=== PATIENT | female | born 1970 | race Caucasian/White ===

== ENCOUNTER 2020-02-02 09:38 | Inpatient (IN) | payer BC ==
[2020-02-02] MEDS ORDERED: ACETAMINOPHEN 1000 MG/100 ML VIAL (NON FORMULARY) IVPB ONE (10:32)
[2020-02-02] MEDS ORDERED: SODIUM CHLORIDE 1,000 ML IV STA (10:32)
[2020-02-02] MEDS ORDERED: ONDANSETRON 4 MG/2 ML VIAL IVPUSH ONE (10:33)
--- NOTE | 2020-02-02 10:35 | PDOC ---
History of Present Illness - General Chief Complaint: Pain Stated Complaint: ABD PAIN Time Seen by Provider: 02/02/20 10:30 History Source: Patient Exam Limitations: No Limitations - History of Present Illness Initial Comments: Pt is a 49 yo F, with PMH of pre-DM and HLD, who is presenting with complaints of RUQ pain x6 days. Pt states the pain is sharp, intermittent, and "feels the same as when I had my gallbladder out". Pt had cholecystectomy 10/2019 (Dr. Mas, [facility]). Pt states the pain is associated with nausea, but without vomiting, and pain is exacerbated by fatty foods. Pt denies any fevers/chills, headache, vision changes, syncope, chest pain, cough, palpitations, SOB, urinary symptoms, diarrhea/constipation, or leg swelling. Pt states she had urinary symptoms (dysuria, frequency) x4 days ago, and was treated with Bactrim DS by [facility] (day 3/7). Pt states these symptoms have improved. Allergies: NKDA PCP: None Surgeon: Dr. Mas ([facility]) Social: Pt denies any cigarette, alcohol, or drug use. Pt denies any recent travel or sick contacts. Surgical: cholecystectomy Family: Father with cholecystectomy 02/02/20 10:35 02/02/20 12:37 Past History - Travel Traveled outside of the country in the last 30 days: No Close contact w/someone who was outside of country & ill: No - Past Medical History Allergies/Adverse Reactions: Allergies Allergy/AdvReac Type Severity Reaction Status Date / Time No Known Allergies Allergy Verified 02/02/20 09:51 Home Medications: Ambulatory Orders Sertraline HCl [Zoloft] 100 mg PO DAILY 02/02/20 Sulfamethoxazole/Trimethoprim [Bactrim Ds Tablet] 1 each PO DAILY 02/02/20 COPD: No Psychiatric Problems: Yes (ANXIETY) - Surgical History Cholecystectomy: Yes - Psycho Social/Smoking Cessation Hx Smoking History: Never smoked Information on smoking cessation initiated: No Hx Alcohol Use: No Drug/Substance Use Hx: No Abd/GI Specific PMHX - Complaint Specific PMHX Colitis: No Diverticulitis: No Gall Bladder Disease: Yes GERD: No Hepatitis: No Irritable Bowel Synd (IBS): No Pancreatitis: No GI Ulcer Disease: No Review of Systems - Review of Systems Able to Perform ROS?: Yes Is the patient limited Latvian proficient: No Constitutional: Yes: Weight Stable. No: Chills, Diaphoresis, Fever, Loss of Appetite, Malaise, Weakness HEENTM: No: Recent change in vision, Nose Congestion, Throat Pain, Throat Swelling, Difficulty Swallowing Respiratory: No: Cough, Orthopnea, Shortness of Breath Cardiac (ROS): No: Chest Pain, Edema, Irregular Heart Rate, Lightheadedness, Palpitations, Syncope, Chest Tightness ABD/GI: Yes: Nausea, Abdominal cramping. No: Abdominal Distended, Constipated, Diarrhea, Poor Appetite, Poor Fluid Intake, Vomiting : No: Burning, Dysuria, Frequency, Flank Pain, Hematuria, Pain, Urgency Musculoskeletal: No: Back Pain, Muscle Pain, Muscle Weakness Integumentary: No: Rash Neurological: No: Headache, Numbness, Weakness, Unsteady Gait, Dizziness Psychiatric: No: Sleep Pattern Change, Change in Appetite Endocrine: No: Increased Urine, Change in Weight Hematologic/Lymphatic: No: Anemia, Blood Clots, Easy Bleeding, Easy Bruising All Other Systems: Reviewed and Negative *Physical Exam - Vital Signs Last Vital Signs Temp Pulse Resp BP Pulse Ox 97.9 F 87 17 120/66 100 02/02/20 09:51 02/02/20 09:51 02/02/20 09:51 02/02/20 09:51 02/02/20 09:51 - Physical Exam Vitals stable, pt afebrile. Pt appears uncomfortable, but in NAD. Obese body habitus. Pt alert and oriented x3. 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 No midline spinal tenderness, step-offs, or crepitus. Head normocephalic, atraumatic. Eyes PERRLA, EOMI. Oropharynx without erythema or exudates, no LAD b/l. No nasal congestion. Hearing intact. Clear heart sounds, S1/S2, no JVD, b/l pedal edema, or heart murmur. Clear lung sounds, no respiratory distress, wheezes, crackles, or accessory muscle use. +diffuse upper abdominal TTP, worst in epigastric area, with no rebound, no guarding. Abdomen soft, non-distended, and with normoactive bowel sounds. Well healed small surgical scars in RUQ. Skin without jaundice or rash. 02/02/20 12:52 ED Treatment Course - LABORATORY CBC & Chemistry Diagram: 02/02/20 10:40 02/02/20 12:28 Medical Decision Making - Medical Decision Making Pt was seen at bedside, also will be seen by attending Dr. Conte. Pt presenting with complaints of RUQ pain, pt had GB removed 10/2019. Will evaluate for chol edocholithiasis vs gastritis vs pancreatitis. Pt tolerating PO intake, less likely obstructed. Provided IV tylenol, zofran, NS for improvement of pain and nausea. Will continue to reassess pt and monitor for symptomatic improvement. 02/02/20 12:54 US abdomen: Fatty infiltration of the liver. Status post cholecystectomy with a 2.8 x 1.5 cm fluid collection in the gallbladder fossa which could represent a seroma or biloma. Correlate clinically. If indicated further evaluation with cross-sectional imaging and/or HIDA scan may be obtained. Shadowing echogenic foci in the gallbladder fossa could represent air within collapsed small bowel loops, calcifications or dense sutures. 02/02/20 14:04 Provided 4 mg IV morphine for pain. UA without infection CBC: WBC 10.9 CMP: elevated Tbili, AST, ALT Will obtain CT abd/pelvis with IV contrast to evaluate for abscess 02/02/20 14:05 CT scan with no distinct seroma or abscess noted. Diffuse fatty liver. No other acute pathology. Providing additional 4 mg IV morphine for pain Paged GI and hospitalist team for admission, likely obstructing stone (possible need for ERCP vs MRCP). 02/02/20 15:08 Pt admitted to hospitalist team. Pt stable and comfortable. 02/02/20 15:28 Discharge - Discharge Information Problems reviewed: Yes Clinical Impression/Diagnosis: RUQ abdominal pain Condition: Stable - Admission Yes - Follow up/Referral - Patient Discharge Instructions - Post Discharge Activity
--- NOTE | 2020-02-02 10:49 | PDOC ---
Attending Attestation - Resident Resident Name: Haritha [place] - ED Attending Attestation I have performed the following: I have examined & evaluated the patient, The case was reviewed & discussed with the resident, I agree w/resident's findings & plan, Exceptions are as noted - HPI HPI: 02/02/20 12:02 49y F PMHx predm, HL, sp cholecystecotmy in oct presents with RUQ pain x 6 days. The patient states that the pain was gradual onset, And intermittent originally.. Since last night the pain was much more persistent and significant. Patient states she had a meal of corn beef lastnight. The patient endorses some nonbilious nonbloody vomiting associated with the pain, the pain has been constant since yesterday and is located primarily in epigastrium and right upper quadrant. Patient states the pain feels familiar when she had her gallbladder taken out last October, But she has otherwise felt fine until the past week. Patient went to urgent care thursday And was diagnosed UTI and she has been compliant with her medications however states that her right upper quadrant pain is not improving.The patient denies any other symptoms including chest pain, shortness of breath, palpitations, lightheadedness, fevers, diarrhea, dysuria, Back pain, hematuria Social history: The patient denies any smoking, recreational drug use or alcohol abuse ddx - choledocholithiasis Exam: GENERAL: The patient is awake, alert, and fully oriented, Nontoxic - in no acute distress. HEAD: Normocephalic, atraumatic. EYES: extraocular movements intact, sclera anicteric, conjunctiva clear. ENT: Normal voice, Moist mucous membranes. NECK: Normal range of motion, supple LUNGS: Breath sounds equal, clear to auscultation bilaterally. No wheezes, no rhonchi, no rales. HEART: Regular rate and rhythm, normal S1 and S2 without murmur, rub or gallop. ABDOMEN: Soft, mild RUQ/epigastric tendeness, No guarding, no rebound. No CVA tenderness EXTREMITIES: Normal range of motion, no edema. NEUROLOGICAL: No facial assymetry, Normal speech, PSYCH: Normal mood, normal affect. SKIN: Warm, Dry, normal turgor, Differential for the patient's symptoms includes possible gastritis, pancreatitis, choledocho lithiasis. Will obtain blood work, right upper quadrant ultrasound, will reassess - Physicial Exam PE: 02/07/20 10:04 see above - Medical Decision Making 02/02/20 13:15 The patient's ultrasound was noted for a seroma/collection. The patient's chemistry hemolyzed and we are awaiting redraw. Consider a CT of the abdomen to further evaluate her seroma/collection. Heart Score/ECG Review - ECG Impressions Comment:: 02/02/20 13:30 Twelve-lead EKG was performed and reviewed by me. There is normal sinus rhythm with a normal rate. Rate of 85 Short TX interval Normal axis No ST wave changes suggestive of acute ischemia Discharge - Discharge Information Problems reviewed: Yes Clinical Impression/Diagnosis: RUQ abdominal pain Condition: Improved Disposition: HOME - Follow up/Referral - Patient Discharge Instructions - Post Discharge Activity
[2020-02-02] MEDS ORDERED: ACETAMINOPHEN INJECTION 100 ML IVPB ONE (10:51)
[2020-02-02] MEDS ORDERED: ONDANSETRON 4 MG/2 ML VIAL ONE (10:51)
[2020-02-02 11:12] LABS: URINE APPEARANCE CLEAR; URINE BILIRUBIN NEGATIVE (NEGATIVE); URINE COLOR YELLOW; URINE GLUCOSE (UA) NEGATIVE (NEGATIVE); URINE KETONE NEGATIVE (NEGATIVE); URINE LEUK ESTERASE NEGATIVE (NEGATIVE); URINE NITRITE NEGATIVE (NEGATIVE); URINE PROTEIN NEGATIVE (NEGATIVE)
[2020-02-02 11:14] LABS: BASO % 0.3 % (0-2.0); HEMATOCRIT 37.5 % (32.4-45.2); HEMOGLOBIN 12.8 GM/dL (10.7-15.3); LYMPH % 10.3 % (8-40); MCH 29.2 pg (25.7-33.7); MCHC 34.1 g/dl (32.0-36.0); MEAN CELL VOLUME 85.7 fl (80-96); MEAN PLT VOLUME 9.8 fl (7.5-11.1); MONO % 6.3 % (3.8-10.2); NEUT % 80.1 % (42.8-82.8); PLATELET COUNT 335 K/MM3 (134-434); RBC 4.37 M/mm3 (3.60-5.2); RDW 15.3 % (11.6-15.6); WHITE BLOOD COUNT 10.9 K/mm3 (4.0-10.0)
[2020-02-02 11:23] LABS: PROTHROMBIN TIME (PATIENT) 11.8 SEC (9.7-13.0)
[2020-02-02] MEDS ORDERED: morphine CARPU-JECT 4 MG/1 ML DISP.SYRIN IVPUSH ONE ×2 (12:21→15:05)
[2020-02-02] MEDS ORDERED: morphine SULFATE 4 MG/ML VIAL ONE ×2 (12:32→15:09)
--- NOTE | 2020-02-02 13:21 | EKG ---
Test Reason : Blood Pressure : / mmHG Vent. Rate : 085 BPM Atrial Rate : 085 BPM P-R Int : 104 ms QRS Dur : 082 ms QT Int : 378 ms P-R-T Axes : 000 040 021 degrees QTc Int : 449 ms SINUS RHYTHM WITH SHORT UT OTHERWISE NORMAL ECG NO PREVIOUS ECGS AVAILABLE Confirmed by DELMAR GÓMEZ MD ([id number]) on 02/02/2020 1:21:09 PM Referred By: Confirmed By:DELMAR GÓMEZ MD
[2020-02-02 13:25] LABS: ALBUMIN 3.4 g/dl (3.4-5.0); ALK PHOS 153 U/L (45-117); ANION GAP 7 MMOL/L (8-16); BILIRUBIN,TOTAL 1.1 mg/dL (0.2-1); BLOOD UREA NITROGEN 8.7 mg/dL (7-18); CALCIUM 9.1 mg/dL (8.5-10.1); CHLORIDE 105 mmol/L (98-107); CO2 25 mmol/L (21-32); CREATININE 0.6 mg/dL (0.55-1.3); GLUCOSE,RANDOM 92 mg/dL (74-106); LIPASE 62 U/L (73-393); POTASSIUM 4.3 mmol/L (3.5-5.1); SGOT/AST 160 U/L (15-37); SGPT/ALT 113 U/L (13-61); SODIUM 137 mmol/L (136-145); TOT PROT 6.8 g/dl (6.4-8.2)
[2020-02-02 17:00] VITALS: BMI 34.5
[2020-02-02] MEDS ORDERED: ONDANSETRON 4 MG/2 ML VIAL IVPUSH PRN (17:07)
--- NOTE | 2020-02-02 17:09 | HP ---
CHIEF COMPLAINT:abdominal pain PCP: HISTORY OF PRESENT ILLNESS: 49 yo F PMHof PreDM, HLD, s/p cholecystectomy ( 10/2019 at [facility], Dr. Mas) BIBEMS to ED for RUQ pain. pt states that for 6 days she has been having worsening RUQ/ epigastric pain. pt states that the pain is 8/10 at its worst, is crampy and sharp at times. she states the pain is worse on inspiration. she denies any alleviating factors. she endorses nausea, with one episode of vomiting today. she states that she went to an urgent care on Thursday, was told she had a UTI and was started on Bactrim. she states that this pain is similar in nature to how she felt in Dec prior to cholecystectomy. she states she last tolerated a meal last night ( corn beef and potatoes, chicken fingers) . she states her diet isnt healthy. she denies fevers or chills. she states that when the pain was at its worst this morning she also felt dizzy. ER course was notable for: (1)U/S see below, CT see below (2)1 L IVF, 4 mg x2 morphine, zofran (3) Recent Travel: PAST MEDICAL HISTORY:see above PAST SURGICAL HISTORY:cholecystectomy, C section LMP: last week of december Social History: Smoking:denies Alcohol:denies Drugs: denies Allergies No Known Allergies Allergy (Verified 02/02/20 09:51) HOME MEDICATIONS: Home Medications Medication Instructions Recorded Sertraline HCl [Zoloft] 100 mg PO DAILY 02/02/20 Sulfamethoxazole/Trimethoprim 1 each PO DAILY 02/02/20 [Bactrim Ds Tablet] REVIEW OF SYSTEMS CONSTITUTIONAL: Absent: fever, chills, diaphoresis, generalized weakness, malaise, loss of appetite, weight change HEENT: Absent: rhinorrhea, nasal congestion, throat pain, throat swelling, difficulty swallowing, mouth swelling, ear pain, eye pain, visual changes CARDIOVASCULAR: Absent: chest pain, syncope, palpitations, irregular heart rate, lightheadedness, peripheral edema RESPIRATORY: Absent: cough, shortness of breath, dyspnea with exertion, orthopnea, wheezing, stridor, hemoptysis GASTROINTESTINAL: Present: abdominal pain, nausea, vomiting Absent: abdominal distension, diarrhea, constipation, melena, hematochezia GENITOURINARY: Absent: dysuria, frequency, urgency, hesitancy, hematuria, flank pain, genital pain MUSCULOSKELETAL: Absent: myalgia, arthralgia, joint swelling, back pain, neck pain SKIN: Absent: rash, itching, pallor HEMATOLOGIC/IMMUNOLOGIC: Absent: easy bleeding, easy bruising, lymphadenopathy, frequent infections ENDOCRINE: Absent: unexplained weight gain, unexplained weight loss, heat intolerance, cold intolerance NEUROLOGIC: Present: dizziness Absent: headache, focal weakness or paresthesias, unsteady gait, seizure, mental status changes, bladder or bowel incontinence PHYSICAL EXAMINATION Vital Signs - 24 hr 02/02/20 02/02/20 02/02/20 09:51 14:54 17:00 Temperature 97.9 F 98.4 F 98.7 F Pulse Rate 87 75 Pulse Rate [ 78 Radial] Respiratory 17 20 20 Rate Blood Pressure 120/66 111/64 Blood Pressure 101/57 L [Right Arm] O2 Sat by Pulse 100 98 Oximetry (%) GENERAL: Awake, alert, and fully oriented, in no acute distress. HEAD: Normal with no signs of trauma. EYES: Pupils equal, round and reactive to light, extraocular movements intact, sclera anicteric EARS, NOSE, THROAT: oropharynx clear without exudates. Moist mucous membranes. NECK: Normal range of motion, supple without lymphadenopathy, JVD, or masses. LUNGS: Breath sounds equal, clear to auscultation bilaterally. No wheezes, and no crackles. No accessory muscle use. HEART: Regular rate and rhythm, normal S1 and S2 without murmur, rub or gallop. ABDOMEN: Soft, mildly ttp at epigastric and suprapubic region, not distended, normoactive bowel sounds, no guarding, no rebound, no masses. + hepatomegaly MUSCULOSKELETAL: Normal range of motion at all joints. No bony deformities or tenderness. No CVA tenderness. UPPER EXTREMITIES: 2+ pulses, warm, well-perfused. No cyanosis. No clubbing. No peripheral edema. LOWER EXTREMITIES: 2+ pulses, warm, well-perfused. No calf tenderness. No peripheral edema. NEUROLOGICAL: Cranial nerves II-XII intact. Normal speech. SKIN: Warm, dry, normal turgor, no rashes or lesions noted, normal capillary refill. Laboratory Last Values WBC 10.9 K/mm3 (4.0-10.0) H 02/02/20 10:40 RBC 4.37 M/mm3 (3.60-5.2) 02/02/20 10:40 Hgb 12.8 GM/dL (10.7-15.3) 02/02/20 10:40 Hct 37.5 % (32.4-45.2) 02/02/20 10:40 MCV 85.7 fl (80-96) 02/02/20 10:40 MCH 29.2 pg (25.7-33.7) 02/02/20 10:40 MCHC 34.1 g/dl (32.0-36.0) 02/02/20 10:40 RDW 15.3 % (11.6-15.6) 02/02/20 10:40 Plt Count 335 K/MM3 (134-434) 02/02/20 10:40 MPV 9.8 fl (7.5-11.1) 02/02/20 10:40 Absolute Neuts (auto) 8.7 K/mm3 (1.5-8.0) H 02/02/20 10:40 Neutrophils % 80.1 % (42.8-82.8) 02/02/20 10:40 Lymphocytes % 10.3 % (8-40) 02/02/20 10:40 Monocytes % 6.3 % (3.8-10.2) 02/02/20 10:40 Eosinophils % 3.0 % (0-4.5) 02/02/20 10:40 Basophils % 0.3 % (0-2.0) 02/02/20 10:40 Nucleated RBC % 0 % (0-0) 02/02/20 10:40 PT with INR 11.80 SEC (9.7-13.0) 02/02/20 10:40 INR 1.00 (0.83-1.09) 02/02/20 10:40 Sodium 137 mmol/L (136-145) 02/02/20 12:28 Potassium 4.3 mmol/L (3.5-5.1) 02/02/20 12:28 Chloride 105 mmol/L (98-107) 02/02/20 12:28 Carbon Dioxide 25 mmol/L (21-32) 02/02/20 12:28 Anion Gap 7 MMOL/L (8-16) L 02/02/20 12:28 BUN 8.7 mg/dL (7-18) 02/02/20 12:28 Creatinine 0.6 mg/dL (0.55-1.3) 02/02/20 12:28 Est GFR (CKD-EPI)AfAm 124.05 02/02/20 12:28 Est GFR (CKD-EPI)NonAf 107.03 02/02/20 12:28 Random Glucose 92 mg/dL (74-106) 02/02/20 12:28 Calcium 9.1 mg/dL (8.5-10.1) 02/02/20 12:28 Total Bilirubin 1.1 mg/dL (0.2-1) H 02/02/20 12:28 AST 160 U/L (15-37) H 02/02/20 12:28 ALT 113 U/L (13-61) H 02/02/20 12:28 Alkaline Phosphatase 153 U/L (45-117) H 02/02/20 12:28 Creatine Kinase 49 U/L (26-192) 02/02/20 12:28 Troponin I < 0.02 ng/ml (0.00-0.05) 02/02/20 12:28 Total Protein 6.8 g/dl (6.4-8.2) 02/02/20 12:28 Albumin 3.4 g/dl (3.4-5.0) 02/02/20 12:28 Lipase 62 U/L (73-393) L 02/02/20 12:28 Serum , Qual Negative 02/02/20 10:40 Urine Color Yellow 02/02/20 10:40 Urine Appearance Clear 02/02/20 10:40 Urine pH 5.0 (5.0-8.0) 02/02/20 10:40 Ur Specific [place] 1.016 (1.010-1.035) 02/02/20 10:40 Urine Protein Negative (NEGATIVE) 02/02/20 10:40 Urine Glucose (UA) Negative (NEGATIVE) 02/02/20 10:40 Urine Ketones Negative (NEGATIVE) 02/02/20 10:40 Urine Blood Negative (NEGATIVE) 02/02/20 10:40 Urine Nitrite Negative (NEGATIVE) 02/02/20 10:40 Urine Bilirubin Negative (NEGATIVE) 02/02/20 10:40 Urine Urobilinogen 1.0 mg/dL (0.2-1.0) 02/02/20 10:40 Ur Leukocyte Esterase Negative (NEGATIVE) 02/02/20 10:40 Blood Type O NEGATIVE 02/02/20 10:40 Antibody Screen Negative 02/02/20 10:40 Abdomen U/S: IMPRESSION: Fatty infiltration of the liver. Status post cholecyst ectomy with a 2.8 x 1.5 cm fluid collection in the gallbladder fossa which c ould represent a seroma or biloma. Correlate clinically. If indicated further evaluation with cross- sectional imaging and/or HIDA scan may be obtained. Shadowing echogenic foci in the gallbladder fossa could represent air within collapsed small bowel loops, calcifications or dense sutures. Abdomen Pelvis CT: IMPRESSION: 1. Diffuse fatty infiltration of the liver. 2. S/P cholecystectomy. There may be a trace amount of fluid or postoperative scarring within the gallbladder fossa. There is no evidence of a discrete se bud, abscess or biloma. 3. No evidence of acute pathology within the abdomen or pelvis. ASSESSMENT/PLAN: 49 yo F PMHof PreDM, HLD, s/p cholecystectomy ( 10/2019 at [facility], Dr. Mas) BIBEMS to ED for RUQ pain. RUQ pain, transaminitis - possibly 2/2 biliary colic, post cholecystectomy syndrome ? - T bili: 1.1, AST 160, ALT 113, AP 153. continue to trend . lipase neg - U/S and CT findings above - GI consult - will start rocephin, flagyl - IVF - may consider MRCP vs ERCP Pre-DM - will get A1C - monitor sugars, if elevated will start ISS , BGM HLD - will get lipid panel F/E/N - IV D5LR -monitor lytes - NPO for possible intervention DVT ppx: Hep SQ Dispo: admit to Med/Surg Visit type - Emergency Visit Emergency Visit: No - New Patient This patient is new to me today: Yes Date on this admission: 02/03/20 - Critical Care Critical Care patient: No ATTENDING PHYSICIAN STATEMENT I saw and evaluated the patient. I reviewed the resident's note and discussed the case with the resident. I agree with the resident's findings and plan as documented. SUBJECTIVE: OBJECTIVE: ASSESSMENT AND PLAN:
[2020-02-02] MEDS ORDERED: DEXTROSE 5%-NORMAL SALINE 1,000 ML IV SCH ×2 (17:30→18:49)
[2020-02-02] MEDS ORDERED: DEXTROSE 5%-WATER - 50 ML IVPB ONE (17:53)
[2020-02-02] MEDS ORDERED: cefTRIAXone SODIUM 1 GM VIAL ONE (17:53)
[2020-02-02 17:55] LABS: BILIRUBIN,DIRECT 0.7 mg/dL (0.0-0.2)
[2020-02-02] MEDS: CEFTRIAXONE 1 GM in DEXTROSE 5%-WATER - 50 ML IVPB SCH (17:56)
--- NOTE | 2020-02-02 18:32 | CON.GI ---
Consult Consult Specialty:: GI Referred by:: Hospitalist Service Reason for Consultation:: Abdominal pain - History of Present Illness Chief Complaint: Abdominal pain History of Present Illness: 49F admitted for evaluation of abdominal pain. States that pain started 6 days ago, was intermittent, located in upper abdomen and RUQ, worse after meals, fatty meals in particular. She went to urgent care Thursday, was diagnosed with UTI and sent home on bactrim. She states that aide from the , labs were "OK". She states that the pain intensified last night prompting her evaluation today. No fevers, chills, cough. + Nausea with retching this morning. States that pain was similar to when she emergently had a cholecystectomy at [facility] 11/03. Abdominal US raised question of small fluid collection in the GB fossa. Follow-up CT scan failed to reveal a fluid collection. Labs revealed elevated bili / ALP and transaminases. US revealed normal caliber bili CBD at 4mm. - History Source History Provided By: Patient Limitations to Obtaining History: No Limitations - Past Medical History Cardio/Vascular: Yes: Hyperlipdemia ...: No - Past Surgical History Past Surgical History: Yes: Cholecystectomy (Laparoscopic 11/03) - Alcohol/Substance Use Hx Alcohol Use: No History of Substance Use: reports: None - Smoking History Smoking history: Never smoked Have you smoked in the past 12 months: No - Social History Usual Living Arrangement: With Spouse ADL: Independent Occupation: Works for [employer] of : [employer] History of Recent Travel: No Home Medications - Allergies Allergies/Adverse Reactions: Allergies Allergy/AdvReac Type Severity Reaction Status Date / Time No Known Allergies Allergy Verified 02/02/20 09:51 - Home Medications Home Medications: Ambulatory Orders Sertraline HCl [Zoloft] 100 mg PO DAILY 02/02/20 Sulfamethoxazole/Trimethoprim [Bactrim Ds Tablet] 1 each PO DAILY 02/02/20 Family Medical History Other Family History: Mother: Alive, healthy. Father: Alive: healthy. 1 brother: healthy 1 sister: helathy. No fam h/o colon cancer or other GI malignancy. Review of Systems - Review of Systems Constitutional: denies: Chills, Unintentional Wgt. Loss Cardiovascular: denies: Chest Pain, Shortness of Breath Respiratory: denies: SOB Gastrointestinal: reports: Abdominal Pain, Nausea Physical Exam-GI Vital Signs: Vital Signs Temperature 98.7 F 02/02/20 17:00 Pulse Rate 75 02/02/20 17:00 Respiratory Rate 20 02/02/20 17:00 Blood Pressure 111/64 02/02/20 17:00 O2 Sat by Pulse Oximetry (%) 98 02/02/20 17:08 Constitutional: Yes: Calm Eyes: No: Sclera Icterus Cardiovascular: Yes: Regular Rate and Rhythm Respiratory: Yes: CTA Bilaterally Gastrointestinal Inspection: Yes: Scars (Healed trochar scars). No: Distention ...Auscultate: Yes: Normoactive Bowel Sounds ...Palpate: Yes: Soft, Tenderness (Mild epigastric and RUQ TTP). No: Guarding, Hepatomegaly, Splenomegaly, Tenderness, Rebound Edema: No (No LE edemqa) Neurological: Yes: Alert Labs: CBC, BMP 02/02/20 10:40 02/02/20 12:28 INR, PTT INR 1.00 (0.83-1.09) 02/02/20 10:40 Hepatic Panel Total Bilirubin 1.1 mg/dL (0.2-1) H 02/02/20 12:28 Direct Bilirubin 0.7 mg/dL (0.0-0.2) H 02/02/20 12:28 AST 160 U/L (15-37) H 02/02/20 12:28 ALT 113 U/L (13-61) H 02/02/20 12:28 Alkaline Phosphatase 153 U/L (45-117) H 02/02/20 12:28 Albumin 3.4 g/dl (3.4-5.0) 02/02/20 12:28 Problem List - Problems (1) RUQ abdominal pain Assessment/Plan: Given post prandial nature of pain, leukocytosis, liver chemistry abnormality, concern would be for retained / passed CBD stone or sludge. Improved tenderness elicited on exam, however Ms. Guzman had received morphine prior to my evaluation. Plan: Ordered MRCP to evaluate biliary tract. As of this morning, the MRCP machine was not functioningm so will see if this is rectified NPO IV hydration per primary team AM labs including CBC/CMP and type and cross IV Abx: Currently of ceftriaxone and flagyl Discussed the possibility of ERCP with Ms. Guzman. Discussed potential risks of the procedure like but not limited to bleeding, perforation requiring surgery to repair, infection, sedation medication effects, pancreatitis all of which could be potentially life threatening. She has agreed to the procedure if it was felt to be medically necessary. Will follow. Code(s): R10.11 - RIGHT UPPER QUADRANT PAIN
--- NOTE | 2020-02-02 19:47 | PN ---
Teaching Attending Note Name of Resident: Alba Bose ATTENDING PHYSICIAN STATEMENT I saw and evaluated the patient. I reviewed the resident's note and discussed the case with the resident. I agree with the resident's findings and plan as documented. SUBJECTIVE: Patient seen and examined at bedside, endorses RUQ pain, she's 2-3 months post-lap cholecystectomy, VSS, denies URI symptoms. Awaiting MRCP. OBJECTIVE: GENERAL: Awake, alert, and fully oriented, in no acute distress. HEAD: Normal with no signs of trauma. EYES: Pupils equal, round and reactive to light, extraocular movements intact, sclera anicteric EARS, NOSE, THROAT: oropharynx clear without exudates. Moist mucous membranes. NECK: Normal range of motion, supple without lymphadenopathy, JVD, or masses. LUNGS: Breath sounds equal, clear to auscultation bilaterally. No wheezes, and no crackles. No accessory muscle use. HEART: Regular rate and rhythm, normal S1 and S2 without murmur, rub or gallop. ABDOMEN: Soft, mild tenderness RUQ no guarding no echevarria sign, not distended, normoactive bowel sounds, no guarding, no rebound, no masses. MUSCULOSKELETAL: Normal range of motion at all joints. No bony deformities or tenderness. No CVA tenderness. UPPER EXTREMITIES: 2+ pulses, warm, well-perfused. No cyanosis. No clubbing. No peripheral edema. LOWER EXTREMITIES: 2+ pulses, warm, well-perfused. No calf tenderness. No peripheral edema. NEUROLOGICAL: Cranial nerves II-XII intact. Normal speech. SKIN: Warm, dry, normal turgor, no rashes or lesions noted, normal capillary refill. Vital Signs - 24 hr 02/02/20 02/02/20 02/02/20 09:51 14:54 17:00 Temperature 97.9 F 98.4 F 98.7 F Pulse Rate 87 75 Pulse Rate [ 78 Radial] Respiratory 17 20 20 Rate Blood Pressure 120/66 111/64 Blood Pressure 101/57 L [Right Arm] O2 Sat by Pulse 100 98 Oximetry (%) 02/02/20 17:08 Temperature Pulse Rate Pulse Rate [ Radial] Respiratory Rate Blood Pressure Blood Pressure [Right Arm] O2 Sat by Pulse 98 Oximetry (%) Laboratory Results - last 24 hr 03/19/20 03/19/20 03/19/20 10:40 10:40 10:40 WBC 10.9 H RBC 4.37 Hgb 12.8 Hct 37.5 MCV 85.7 MCH 29.2 MCHC 34.1 RDW 15.3 Plt Count 335 MPV 9.8 Absolute Neuts (auto) 8.7 H Neutrophils % 80.1 Lymphocytes % 10.3 Monocytes % 6.3 Eosinophils % 3.0 Basophils % 0.3 Nucleated RBC % 0 PT with INR INR Sodium Potassium Chloride Carbon Dioxide Anion Gap BUN Creatinine Est GFR (CKD-EPI)AfAm Est GFR (CKD-EPI)NonAf Random Glucose Calcium Total Bilirubin Direct Bilirubin AST ALT Alkaline Phosphatase Creatine Kinase Troponin I Total Protein Albumin Lipase Serum , Qual Negative Urine Color Yellow Urine Appearance Clear Urine pH 5.0 Ur Specific [place] 1.016 Urine Protein Negative Urine Glucose (UA) Negative Urine Ketones Negative Urine Blood Negative Urine Nitrite Negative Urine Bilirubin Negative Urine Urobilinogen 1.0 Ur Leukocyte Esterase Negative Blood Type Antibody Screen 02/02/20 02/02/20 02/02/20 10:40 10:40 10:40 WBC RBC Hgb Hct MCV MCH MCHC RDW Plt Count MPV Absolute Neuts (auto) Neutrophils % Lymphocytes % Monocytes % Eosinophils % Basophils % Nucleated RBC % PT with INR 11.80 INR 1.00 Sodium Cancelled Potassium Cancelled Chloride Cancelled Carbon Dioxide Cancelled Anion Gap Cancelled BUN Cancelled Creatinine Cancelled Est GFR (CKD-EPI)AfAm Cancelled Est GFR (CKD-EPI)NonAf Cancelled Random Glucose Cancelled Calcium Cancelled Total Bilirubin Cancelled Direct Bilirubin AST Cancelled ALT Cancelled Alkaline Phosphatase Cancelled Creatine Kinase Cancelled Troponin I Cancelled Total Protein Cancelled Albumin Cancelled Lipase Cancelled Serum , Qual Urine Color Urine Appearance Urine pH Ur Specific [place] Urine Protein Urine Glucose (UA) Urine Ketones Urine Blood Urine Nitrite Urine Bilirubin Urine Urobilinogen Ur Leukocyte Esterase Blood Type O NEGATIVE Antibody Screen Negative 02/02/20 12:28 WBC RBC Hgb Hct MCV MCH MCHC RDW Plt Count MPV Absolute Neuts (auto) Neutrophils % Lymphocytes % Monocytes % Eosinophils % Basophils % Nucleated RBC % PT with INR INR Sodium 137 Potassium 4.3 Chloride 105 Carbon Dioxide 25 Anion Gap 7 L BUN 8.7 Creatinine 0.6 Est GFR (CKD-EPI)AfAm 124.05 Est GFR (CKD-EPI)NonAf 107.03 Random Glucose 92 Calcium 9.1 Total Bilirubin 1.1 H Direct Bilirubin 0.7 H AST 160 H ALT 113 H Alkaline Phosphatase 153 H Creatine Kinase 49 Troponin I < 0.02 Total Protein 6.8 Albumin 3.4 Lipase 62 L Serum , Qual Urine Color Urine Appearance Urine pH Ur Specific [place] Urine Protein Urine Glucose (UA) Urine Ketones Urine Blood Urine Nitrite Urine Bilirubin Urine Urobilinogen Ur Leukocyte Esterase Blood Type Antibody Screen Home Medications Medication Instructions Recorded Sertraline HCl [Zoloft] 100 mg PO DAILY 02/02/20 Sulfamethoxazole/Trimethoprim 1 each PO DAILY 02/02/20 [Bactrim Ds Tablet] Current Medications Generic Name Dose Route Start Last Admin Trade Name Freq PRN Reason Stop Dose Admin Docusate Sodium 100 mg 02/02/20 19:15 Colace - PO DAILY PORTIA Heparin Sodium (Porcine) 5,000 unit 02/02/20 22:00 Heparin - SQ TID PORTIA Ceftriaxone Sodium 1 gm/ 50 mls @ 100 mls/hr 02/02/20 17:30 02/02/20 17:56 Dextrose IVPB 100 mls/hr DAILY PORTIA Administration Metronidazole 500 mg in 100 mls @ 100 mls/hr 02/02/20 17:30 02/02/20 18:55 Flagyl 500mg Premixed Ivpb - IVPB 100 mls/hr Q6H-IV PORTIA Administration Dextrose/Sodium Chloride 1,000 mls @ 100 mls/hr 02/02/20 18:49 02/02/20 19:00 D5-Ns - IV 100 mls/hr ASDIR PORTIA Administration Indomethacin 50 mg 02/02/20 18:51 Indocin Suppository - ME 02/02/20 18:52 ONCE ONE Morphine Sulfate 2 mg 02/02/20 19:11 Morphine Sulfate IVPUSH Q6H PRN PAIN LEVEL 7 - 10 Ondansetron HCl 4 mg 02/02/20 17:07 Zofran Injection IVPUSH Q6H PRN NAUSEA Polyethylene Glycol 17 gm 02/03/20 10:00 Miralax (For Daily Use) - PO DAILY PORTIA ASSESSMENT AND PLAN: 49 F h/o obesity, Pre-DM, HLD, s/p cholecystectomy ( 10/2019 at [facility], Dr. Mas) admitted for RUQ pain suspicious for passed CBD stone v.s. biliary sludge. RUQ pain w/ transaminitis Suspicious for possible passed CBD stone, v.s. residual biliary sludge awaiting MRCP, IVF for now, NPO, pain control with Morphine Send hepatitis panel GI consult Pre-DM send A1c, lipids, TSH advise DM diet, and exercise w/ weight loss Depression restart Zoloft Denies current SI/HI DVT ppx: Heparin SC Med Surg
[2020-02-02] MEDS ORDERED: HEPARIN NA (PORCINE) 5,000 UNITS/ML 1ML VIAL SQ SCH (22:00)
[2020-02-02] MEDS: MORPHINE SULFATE 2 MG/ML VIAL IVPUSH PRN (22:10)
[2020-02-02] MEDS: DOCUSATE SODIUM 100 MG CAPSULE (FP) PO SCH (23:03)
[2020-02-03 06:46] LABS: HEMATOCRIT 36.8 % (32.4-45.2); HEMOGLOBIN 12.4 GM/dL (10.7-15.3); MCHC 33.8 g/dl (32.0-36.0); MEAN CELL VOLUME 85.8 fl (80-96); MEAN PLT VOLUME 9.6 fl (7.5-11.1); PLATELET COUNT 291 K/MM3 (134-434); RBC 4.28 M/mm3 (3.60-5.2); RDW 15.5 % (11.6-15.6); WHITE BLOOD COUNT 4.8 K/mm3 (4.0-10.0)
[2020-02-03 06:52] LABS: INR 1.06 (0.83-1.09); PROTHROMBIN TIME (PATIENT) 12.5 SEC (9.7-13.0)
[2020-02-03 06:55] LABS: ACTIVATED PTT 31.8 SECONDS (25.2-36.5)
[2020-02-03 07:30] LABS: ALBUMIN 3.2 g/dl (3.4-5.0); BILIRUBIN,TOTAL 1.3 mg/dL (0.2-1); BLOOD UREA NITROGEN 7.8 mg/dL (7-18); CALCIUM 8.5 mg/dL (8.5-10.1); CREATININE 0.6 mg/dL (0.55-1.3); MAGNESIUM 2.1 mg/dL (1.8-2.4); PHOSPHOROUS 4.1 mg/dL (2.5-4.9); POTASSIUM 4.1 mmol/L (3.5-5.1); TOT PROT 6.4 g/dl (6.4-8.2)
[2020-02-03] MEDS ORDERED: fentaNYL CITRATE 250 MCG/5 ML VIAL ONE (09:02)
[2020-02-03] MEDS ORDERED: MIDAZOLAM HCL 2 MG/2 ML SINGLE DOSE VIAL ONE (09:28)
--- NOTE | 2020-02-03 09:40 | PN ---
Progress Note (short form) - Note Progress Note: GI Note: Case was presented to me by Dr Ly yesterday. MRCP reveals a distal CBD stone. I discussed ERCP with it's potential for such complication as perforation, hemorrhage and multiorgan failure that can be associated with ERCP induced pancreatitis. Porsha has signed an informed consent. Indocin will be given. Will proceed with ERCP HA.
[2020-02-03 09:52] LABS: BILIRUBIN,DIRECT 0.6 mg/dL (0.0-0.2)
[2020-02-03] MEDS ORDERED: INDOMETHACIN 50 MG RECTAL SUPPOSITORY PR ONE ×2 (09:55→10:00)
[2020-02-03] MEDS: DOCUSATE SODIUM 100 MG CAPSULE (FP) PO SCH (10:17)
[2020-02-03] MEDS ORDERED: IOHEXOL 300 MG/ML INFUS..BTL IV ONE (10:25)
--- NOTE | 2020-02-03 11:01 | PN ---
Progress Note (short form) - Note Progress Note: GI NOte: Please see ERCP report. A single stone was found. Despite making the largest size sphincterotomy that her anatomy permitted the stone could not be extracted so a 7Fr x 4cm length double pigtail stent was placed to protect against cholangitis and pancreatitis. I explained to her and her by phone that she will need a repeat ERCP to remove the stent and stone within 6 months or sooner if the COVID situation permits. If she does not develop pancreatitis, fever or other complications she could be discharged tomorrow with an antibiotic for 7 days and Actigal 300mg BID. She has my business card to arrange followup.
[2020-02-03] MEDS ORDERED: LACTATED RINGERS SOLUTION 1,000 ML/1,000 ML INFUS.BAG IV SCH ×2 (11:15→18:00)
[2020-02-03] MEDS: MORPHINE SULFATE 2 MG/ML VIAL IVPUSH PRN ×2 (12:17→19:34)
[2020-02-03] MEDS: SERTRALINE HCL 50 MG TABLET (FP) PO SCH (13:58)
--- NOTE | 2020-02-03 14:08 | PN ---
Physical Exam: SUBJECTIVE: Patient seen and examined at bedside. before ERCP pt states that pain was well controlled, denied n/v. after ERCP pt states that she was having significant RUQ , epigastric pain. she still has an appetite. she denies nausea. ERCP and findings were discussed with patient OBJECTIVE: Vital Signs Period Temp Pulse Resp BP Sys/Faye Pulse Ox Last 24 Hr 97.7 F-99.1 F 62-80 14-20 101-138/56-77 96-100 GENERAL: The patient is awake, alert, and fully oriented, in no acute distress. HEAD: Normal with no signs of trauma.. LUNGS: Breath sounds equal, clear to auscultation bilaterally, no wheezes, no crackles, no accessory muscle use. HEART: Regular rate and rhythm, S1, S2 without murmur, rub or gallop. ABDOMEN: Soft, RUQ and epigastric TTP , nondistended, normoactive bowel sounds, no guarding EXTREMITIES: 2+ pulses, warm, well-perfused, no edema. SKIN: Warm, dry, normal turgor, no rashes or lesions noted Laboratory Last Values WBC 4.8 K/mm3 (4.0-10.0) 02/03/20 06:15 RBC 4.28 M/mm3 (3.60-5.2) 02/03/20 06:15 Hgb 12.4 GM/dL (10.7-15.3) 02/03/20 06:15 Hct 36.8 % (32.4-45.2) 02/03/20 06:15 MCV 85.8 fl (80-96) 02/03/20 06:15 MCH 29.0 pg (25.7-33.7) 02/03/20 06:15 MCHC 33.8 g/dl (32.0-36.0) 02/03/20 06:15 RDW 15.5 % (11.6-15.6) 02/03/20 06:15 Plt Count 291 K/MM3 (134-434) 02/03/20 06:15 MPV 9.6 fl (7.5-11.1) 02/03/20 06:15 Absolute Neuts (auto) 8.7 K/mm3 (1.5-8.0) H 02/02/20 10:40 Neutrophils % 80.1 % (42.8-82.8) 02/02/20 10:40 Lymphocytes % 10.3 % (8-40) 02/02/20 10:40 Monocytes % 6.3 % (3.8-10.2) 02/02/20 10:40 Eosinophils % 3.0 % (0-4.5) 02/02/20 10:40 Basophils % 0.3 % (0-2.0) 02/02/20 10:40 Nucleated RBC % 0 % (0-0) 02/02/20 10:40 PT with INR 12.50 SEC (9.7-13.0) 02/03/20 06:15 INR 1.06 (0.83-1.09) 02/03/20 06:15 PTT (Actin FS) 31.8 SECONDS (25.2-36.5) 02/03/20 06:15 Sodium 139 mmol/L (136-145) 02/03/20 06:15 Potassium 4.1 mmol/L (3.5-5.1) 02/03/20 06:15 Chloride 107 mmol/L (98-107) 02/03/20 06:15 Carbon Dioxide 24 mmol/L (21-32) 02/03/20 06:15 Anion Gap 8 MMOL/L (8-16) 02/03/20 06:15 BUN 7.8 mg/dL (7-18) 02/03/20 06:15 Creatinine 0.6 mg/dL (0.55-1.3) 02/03/20 06:15 Est GFR (CKD-EPI)AfAm 124.05 02/03/20 06:15 Est GFR (CKD-EPI)NonAf 107.03 02/03/20 06:15 POC Glucometer 95 UNITS (80-120) 02/03/20 06:13 Random Glucose 98 mg/dL (74-106) 02/03/20 06:15 Hemoglobin A1c % 5.4 % (4.2-6.3) 02/03/20 06:15 Calcium 8.5 mg/dL (8.5-10.1) 02/03/20 06:15 Phosphorus 4.1 mg/dL (2.5-4.9) 02/03/20 06:15 Magnesium 2.1 mg/dL (1.8-2.4) 02/03/20 06:15 Total Bilirubin 1.3 mg/dL (0.2-1) H 02/03/20 06:15 Direct Bilirubin 0.6 mg/dL (0.0-0.2) H 02/03/20 06:15 AST 300 U/L (15-37) H 02/03/20 06:15 ALT 357 U/L (13-61) H 02/03/20 06:15 Alkaline Phosphatase 220 U/L (45-117) H 02/03/20 06:15 Creatine Kinase 49 U/L (26-192) 02/02/20 12:28 Troponin I < 0.02 ng/ml (0.00-0.05) 02/02/20 12:28 Total Protein 6.4 g/dl (6.4-8.2) 02/03/20 06:15 Albumin 3.2 g/dl (3.4-5.0) L 02/03/20 06:15 Triglycerides 169 mg/dL (0-150) H 02/03/20 06:15 Cholesterol 206 mg/dL (50-200) H 02/03/20 06:15 Total LDL Cholesterol 139 mg/dL (5-100) H 02/03/20 06:15 HDL Cholesterol 37 mg/dL (40-60) L 02/03/20 06:15 Lipase 62 U/L (73-393) L 02/02/20 12:28 TSH 2.48 uIU/ml (0.358-3.74) 02/03/20 06:15 Serum , Qual Negative 02/02/20 10:40 Urine Color Yellow 02/02/20 10:40 Urine Appearance Clear 02/02/20 10:40 Urine pH 5.0 (5.0-8.0) 02/02/20 10:40 Ur Specific [place] 1.016 (1.010-1.035) 02/02/20 10:40 Urine Protein Negative (NEGATIVE) 02/02/20 10:40 Urine Glucose (UA) Negative (NEGATIVE) 02/02/20 10:40 Urine Ketones Negative (NEGATIVE) 02/02/20 10:40 Urine Blood Negative (NEGATIVE) 02/02/20 10:40 Urine Nitrite Negative (NEGATIVE) 02/02/20 10:40 Urine Bilirubin Negative (NEGATIVE) 02/02/20 10:40 Urine Urobilinogen 1.0 mg/dL (0.2-1.0) 02/02/20 10:40 Ur Leukocyte Esterase Negative (NEGATIVE) 02/02/20 10:40 Acetaminophen 14.4 02/02/20 20:00 Blood Type O NEGATIVE 02/02/20 10:40 Antibody Screen Negative 02/02/20 10:40 Current Medications Docusate Sodium (Colace -) 200 mg PO DAILY PORTIA Metronidazole (Flagyl 500mg Premixed Ivpb -) 500 mg in 100 mls @ 100 mls/hr IVPB Q6H-IV PORTIA Last Admin: 02/03/20 15:51 Dose: 100 mls/hr Documented by: Cefazolin Sodium 1 gm/ (Dextrose) 50 mls @ 100 mls/hr IVPB Q8H-IV PORTIA Stop: 02/06/20 17:59 Lactated Ringer's (Lactated Ringers Solution) 1,000 ml in 1,000 mls @ 250 mls/hr IV ASDIR PORTIA Stop: 02/03/20 18:00 Last Admin: 02/03/20 13:58 Dose: Not Given Documented by: Lactated Ringer's (Lactated Ringers Solution) 1,000 ml in 1,000 mls @ 200 mls/hr IV ASDIR PORTIA Stop: 02/04/20 02:00 Lactated Ringer's (Lactated Ringers Solution) 1,000 ml in 1,000 mls @ 175 mls/hr IV ASDIR PORTIA Stop: 02/04/20 10:00 Lactated Ringer's (Lactated Ringers Solution) 1,000 ml in 1,000 mls @ 150 mls/hr IV ASDIR [facility] Lorazepam (Ativan) 2 mg PO BID PRN PRN Reason: PAIN LEVEL 4 - 6 Morphine Sulfate (Morphine Sulfate) 2 mg IVPUSH Q6H PRN PRN Reason: PAIN LEVEL 1 - 3 Ondansetron HCl (Zofran Injection) 4 mg IVPUSH Q6H PRN PRN Reason: NAUSEA Last Admin: 02/03/20 12:17 Dose: 4 mg Documented by: Oxycodone HCl (Roxicodone -) 5 mg PO Q4H PRN PRN Reason: PAIN LEVEL 4 - 6 Last Admin: 02/03/20 16:41 Dose: 5 mg Documented by: Oxycodone HCl (Roxicodone -) 10 mg PO Q6H PRN PRN Reason: PAIN LEVEL 7 - 10 Polyethylene Glycol (Miralax (For Daily Use) -) 17 gm PO DAILY [facility] Last Admin: 02/03/20 14:09 Dose: Not Given Documented by: Sertraline HCl (Zoloft -) 100 mg PO DAILY [facility] Last Admin: 02/03/20 13:58 Dose: Not Given Documented by: Ursodiol (Actigal -) 300 mg PO BID [facility] ASSESSMENT/PLAN: 49 yo F PMHof PreDM, HLD, s/p cholecystectomy ( 10/2019 at [facility], Dr. Mas) BIBEMS to ED for RUQ pain. pt is admitted for choledocolithiasis RUQ pain, transaminitis 2/2 lithiasis - s/p ERCP 02/02 , stone visualized but unable to be removed but stent placed. pt will need to f/u outpt within 6 months. - continue cefazolyn and flagyl . will need abx for 7 days, will convert to PO on dc.started on Actigal 300mg BID. - continue to trend LFTs - will get lipase , amylase in am - GI consult appreciated - IVF HLD, Hx of pre- dm - LDL 139, TG 169, chol 206, HDL 37 -ASCVD 1.8%, no need for statin. recommended lifestyle modifications -A1c 5.4% F/E/N - IV D5LR -monitor lytes - clear liquid diet DVT ppx: SCDs, avoid chemical ppx Visit type - Emergency Visit Emergency Visit: No - New Patient This patient is new to me today: No - Critical Care Critical Care patient: No - Discharge Referral Referred to [facility] Med [facility].C[facility] No ATTENDING PHYSICIAN STATEMENT I saw and evaluated the patient. I reviewed the resident's note and discussed the case with the resident. I agree with the resident's findings and plan as documented. SUBJECTIVE: OBJECTIVE: ASSESSMENT AND PLAN:
[2020-02-03] MEDS: POLYETHYLENE GLYCOL 3350 119 GM BTL PO SCH (14:09)
[2020-02-03] MEDS: CEFTRIAXONE 1 GM in DEXTROSE 5%-WATER - 50 ML IVPB SCH (15:06)
--- NOTE | 2020-02-03 15:37 | PN ---
Teaching Attending Note Name of Resident: Alba Bose ATTENDING PHYSICIAN STATEMENT I saw and evaluated the patient. I reviewed the resident's note and discussed the case with the resident. I agree with the resident's findings and plan as documented. SUBJECTIVE: just came back from ERCP no fever or chills. No N/V . has abd pain in epigastric area. OBJECTIVE: NAD,awake, alert, oriented MMM CV: RRR, no MRG Lungs: CTAB ABd:sfot, ND, TTP in epigastric area. no rebound tenderness, no guarding . nl BS. well healed laparoscopic wounds Ext : No edema or erythema on upper or lower extremities ASSESSMENT AND PLAN: 49 y/o lady with h/o HLP, and recent [id number], w previous h/o prediabetes, who presented with abd pain and was found to have LFTS abnormalities due to CBD stone 1- Impacted CBD stone 2- Transaminitis 3- LDL of 131 4- H/o Pre-diabetes. Now A1c 5.4 Plan : s/p ERCP with stent placement. stone was not removed - cont IVf - case d/w Dr. Escamilla, can't use CTX with LR. So Abx were changed to Cefazolin + metronidazole . - cont po abx after dc - clears fro dinner today - monitor fro signs of pancreatitis - add oxy for pain control - LDL 131, 10 year risk for CAD is 1%. No need for statins - follow LFTs in am - Lipase in am DBVT X: SCds . No chemicals in 72 hours
[2020-02-03] MEDS ORDERED: LORazepam 2 MG TABLET PO PRN (16:26)
[2020-02-03] MEDS ORDERED: oxyCODONE HCL 5 MG TABLET PO PRN ×4 (16:35→17:31)
[2020-02-03] MEDS ORDERED: MORPHINE SULFATE 2 MG/ML VIAL IVPUSH PRN ×2 (16:38→16:51)
[2020-02-03] MEDS ORDERED: ceFAZolin SODIUM 1 GM VIAL ONE (18:35)
[2020-02-03] MEDS ORDERED: DEXTROSE 5%-WATER - 50 ML IVPB ONE (18:35)
[2020-02-03] MEDS: CEFAZOLIN 1 GM in DEXTROSE 5%-WATER - 50 ML IVPB SCH (18:50)
[2020-02-03] MEDS ORDERED: LORazepam 1 MG TABLET PO PRN (20:42)
[2020-02-03] MEDS ORDERED: PT OWN MED DRAWER 7, Y5N ONE (21:44)
[2020-02-03] MEDS: URSODIOL 300 MG CAPSULE PO SCH (21:47)
[2020-02-04] MEDS ORDERED: ceFAZolin SODIUM 1 GM VIAL ONE ×3 (00:56→17:52)
[2020-02-04] MEDS ORDERED: DEXTROSE 5%-WATER - 50 ML IVPB ONE ×3 (00:57→17:53)
[2020-02-04] MEDS: CEFAZOLIN 1 GM in DEXTROSE 5%-WATER - 50 ML IVPB SCH ×3 (01:04→18:15)
[2020-02-04] MEDS ORDERED: LACTATED RINGERS SOLUTION 1,000 ML/1,000 ML INFUS.BAG IV SCH ×2 (02:00→10:00)
[2020-02-04 06:53] LABS: BASO % 0.4 % (0-2.0); EOS % 1.8 % (0-4.5); HEMATOCRIT 35.4 % (32.4-45.2); HEMOGLOBIN 11.8 GM/dL (10.7-15.3); LYMPH % 20.8 % (8-40); MCH 28.7 pg (25.7-33.7); MCHC 33.5 g/dl (32.0-36.0); MEAN CELL VOLUME 85.6 fl (80-96); MEAN PLT VOLUME 9.5 fl (7.5-11.1); MONO % 6.7 % (3.8-10.2); NEUT % 70.3 % (42.8-82.8); PLATELET COUNT 302 K/MM3 (134-434); RBC 4.13 M/mm3 (3.60-5.2); RDW 14.9 % (11.6-15.6); WHITE BLOOD COUNT 7.9 K/mm3 (4.0-10.0)
[2020-02-04 07:18] LABS: BILIRUBIN,DIRECT 0.2 mg/dL (0.0-0.2); BILIRUBIN,TOTAL 0.7 mg/dL (0.2-1); BLOOD UREA NITROGEN 4.8 mg/dL (7-18); CALCIUM 8.5 mg/dL (8.5-10.1); CREATININE 0.5 mg/dL (0.55-1.3); MAGNESIUM 1.9 mg/dL (1.8-2.4); PHOSPHOROUS 3.4 mg/dL (2.5-4.9); POTASSIUM 4.1 mmol/L (3.5-5.1); TOT PROT 6.1 g/dl (6.4-8.2)
[2020-02-04] MEDS: MORPHINE SULFATE 2 MG/ML VIAL IVPUSH PRN (09:48)
[2020-02-04] MEDS: POLYETHYLENE GLYCOL 3350 119 GM BTL PO SCH (10:10)
[2020-02-04] MEDS: URSODIOL 300 MG CAPSULE PO SCH ×2 (10:10→21:15)
[2020-02-04] MEDS: DOCUSATE SODIUM 100 MG CAPSULE (FP) PO SCH (10:10)
[2020-02-04] MEDS: SERTRALINE HCL 50 MG TABLET (FP) PO SCH (10:10)
--- NOTE | 2020-02-04 13:12 | PN.GI ---
GI Progress Note Subjective: PATIENT DOING OKAY TODAY - LESS ABDOMINAL PAIN ; TOLERATED DIET - Objective Vital Signs: Vital Signs Temperature 98.1 F 02/04/20 06:00 Pulse Rate 86 02/04/20 06:00 Respiratory Rate 20 02/04/20 06:00 Blood Pressure 145/85 02/04/20 06:00 O2 Sat by Pulse Oximetry (%) 97 02/03/20 21:00 Constitutional: Well Nourished, No Distress Eyes: Yes: WNL HENT: Yes: WNL Neck: Yes: WNL Cardiovascular: Yes: WNL, Regular Rate and Rhythm Respiratory: Yes: WNL, Regular, CTA Bilaterally Gastrointestinal Inspection: Yes: WNL ...Auscultate: Yes: Normoactive Bowel Sounds Extremities: Yes: WNL Edema: No Labs: CBC, BMP 02/04/20 06:20 02/04/20 06:20 INR, PTT INR 1.06 (0.83-1.09) 02/03/20 06:15 Problem List - Problems (1) Choledocholithiasis with obstruction Assessment/Plan: LOW FAT DIET COMPLETE 7 DAY COURSE OF ABX ACTIGAL IF CONSTINUES TO IMPROVE NO OBJECTION TO DC HOME FROM A GI PERSPECTIVE WITH OUTPT GI F/U (DR. SYED) REGARDING PLAN FOR STENT REMOVAL . Code(s): K80.51 - CALCULUS OF BILE DUCT W/O CHOLANGITIS OR CHOLECYST W OBST (2) RUQ abdominal pain Code(s): R10.11 - RIGHT UPPER QUADRANT PAIN (3) Transaminitis Code(s): R74.0 - NONSPEC ELEV OF LEVELS OF TRANSAMNS & LACTIC ACID DEHYDRGNSE
--- NOTE | 2020-02-04 15:56 | PN ---
Teaching Attending Note Name of Resident: Arnol Acuña ATTENDING PHYSICIAN STATEMENT I saw and evaluated the patient. I reviewed the resident's note and discussed the case with the resident. I agree with the resident's findings and plan as documented. SUBJECTIVE: seen at 10 am No fever or chills. ate breakfast with no complaints. seen by resident after lunch ( soft diet ) , and had a little bloating feeling and discomfort OBJECTIVE: NAD,awake, alert, oriented MMM CV: RRR, no MRG Lungs: CTAB ABD: soft , ND, minimal TTP in epigastric area. no rebound tenderness, no guarding. nl BS. well healed laparoscopic wounds Ext : No edema or erythema on upper or lower extremities ASSESSMENT AND PLAN: 49 y/o lady with h/o HLP, and recent [id number]/19, w previous h/o prediabetes, who presented with abd pain and was found to have LFTS abnormalities due to CBD stone 1- Impacted CBD stone 2- Transaminitis 3- LDL of 131. 4- H/o Pre-diabetes. Now A1c 5.4. Plan : - s/p ERCP with stent placement 02/02. - cont IVf . no signs of post ERCP pancreatitis . advance diet - cont abx x 1 week - cont po abx after dc - oxy for pain control. dc morphine - LDL 131, 10 year risk for CAD is 1%. No need for statins - follow LFTs in am - Lipase in am Patient has some abd pain after food, feels very nervous about going home with pain. will monitor over night.
--- NOTE | 2020-02-04 16:06 | PN ---
Physical Exam: SUBJECTIVE: Patient seen and examined. Pt. stated she slept well over night. Pt. had pain over night radiating to LUQ. Pt. endorses slight discomfort and bloating after eating. No nausea or vomiting. Pt. endorses passing gas and stool on repeat examination during the day. OBJECTIVE: Vital Signs Period Temp Pulse Resp BP Sys/Faye Pulse Ox Last 24 Hr 97.7 F-98.1 F 75-86 18-20 133-151/72-86 97 GENERAL: The patient is awake, alert, and fully oriented, in no acute distress. HEAD: Normal with no signs of trauma.. LUNGS: Breath sounds equal, clear to auscultation bilaterally, no wheezes, no crackles, no accessory muscle use. HEART: Regular rate and rhythm, S1, S2 without murmur, rub or gallop. ABDOMEN: Soft, mild TTP in epigastrium and RUQ- did not wince or jump out of bed on palpation, nondistended, normoactive bowel sounds, no guarding EXTREMITIES: 2+ dorsal pedal pulses, warm, well-perfused, no edema. SKIN: Warm, dry, normal turgor, no rashes or lesions noted Laboratory Results - last 24 hr 02/02/20 02/03/20 02/04/20 21:05 21:29 06:03 WBC RBC Hgb Hct MCV MCH MCHC RDW Plt Count MPV Absolute Neuts (auto) Neutrophils % Lymphocytes % Monocytes % Eosinophils % Basophils % Nucleated RBC % Sodium Potassium Chloride Carbon Dioxide Anion Gap BUN Creatinine Est GFR (CKD-EPI)AfAm Est GFR (CKD-EPI)NonAf POC Glucometer 124 93 Random Glucose Calcium Phosphorus Magnesium Total Bilirubin Direct Bilirubin AST ALT Alkaline Phosphatase C-Reactive Protein Total Protein Albumin Total Amylase Lipase Hep A IgM Ab Confirm Negative Hep Bs Antigen Negative Hep B Core IgM Ab Negative Hepatitis C Ab (EIA) <0.1 02/04/20 02/04/20 02/04/20 06:20 06:20 12:50 WBC 7.9 RBC 4.13 Hgb 11.8 Hct 35.4 MCV 85.6 MCH 28.7 MCHC 33.5 RDW 14.9 Plt Count 302 MPV 9.5 Absolute Neuts (auto) 5.5 Neutrophils % 70.3 Lymphocytes % 20.8 D Monocytes % 6.7 Eosinophils % 1.8 Basophils % 0.4 Nucleated RBC % 0 Sodium 140 Potassium 4.1 Chloride 105 Carbon Dioxide 27 Anion Gap 8 BUN 4.8 L Creatinine 0.5 L Est GFR (CKD-EPI)AfAm 131.72 Est GFR (CKD-EPI)NonAf 113.65 POC Glucometer 134 Random Glucose 95 Calcium 8.5 Phosphorus 3.4 Magnesium 1.9 Total Bilirubin 0.7 Direct Bilirubin 0.2 AST 128 H ALT 287 H Alkaline Phosphatase 236 H C-Reactive Protein 1.5 H Total Protein 6.1 L Albumin 3.0 L Total Amylase 50 Lipase 180 Hep A IgM Ab Confirm Hep Bs Antigen Hep B Core IgM Ab Hepatitis C Ab (EIA) Active Medications Generic Name Dose Route Start Last Admin Trade Name Freq PRN Reason Stop Dose Admin Docusate Sodium 200 mg 02/04/20 10:00 02/04/20 10:10 Colace - PO 200 mg DAILY PORTIA Administration Metronidazole 500 mg in 100 mls @ 100 mls/hr 02/02/20 17:30 02/04/20 09:01 Flagyl 500mg Premixed Ivpb - IVPB 100 mls/hr Q6H-IV PORTIA Administration Cefazolin Sodium 1 gm/ 50 mls @ 100 mls/hr 02/03/20 18:00 02/04/20 10:10 Dextrose IVPB 02/06/20 17:59 100 mls/hr Q8H-IV PORTIA Administration Lactated Ringer's 1,000 ml in 1,000 mls @ 100 mls/hr 02/04/20 16:01 Lactated Ringers Solution IV ASDIR PORTIA Lorazepam 2 mg 02/03/20 20:42 02/03/20 21:04 Ativan - PO 2 mg BID PRN Administration PAIN LEVEL 4 - 6 Oxycodone HCl 5 mg 02/03/20 17:31 Roxicodone - PO Q4H PRN PAIN LEVEL 6-10 Polyethylene Glycol 17 gm 02/03/20 10:00 02/04/20 10:10 Miralax (For Daily Use) - PO 17 gm DAILY PORTIA Administration Sertraline HCl 100 mg 02/03/20 10:00 02/04/20 10:10 Zoloft - PO 100 mg DAILY PORTIA Administration Ursodiol 300 mg 02/03/20 22:00 02/04/20 10:10 Actigal - PO 300 mg BID PORTIA Administration ASSESSMENT/PLAN: Pt. is a 49 y.o. F w/ PMHx. of PreDM, HLD, s/p cholecystectomy (10/2019 at [facility], Dr. Mas) BIBEMS to ED for RUQ pain and admitted for choledocolithiasis RUQ pain, transaminitis 2/2 lithiasis - s/p ERCP 02/02 , stone visualized but unable to be removed but stent placed. pt will need to f/u outpt within 6 months. - continue cefazolin and flagyl; will discharge on Ceftin for a total of 7 days of Abx. - started on Actigal 300mg BID; will continue on discharge - continue to trend LFTs - Amylase and Lipase wnl - GI consult appreciated - IVF HLD, Hx of pre- dm - LDL 139, TG 169, chol 206, HDL 37 - ASCVD 1.8%, no need for statin. recommended lifestyle modifications - A1c 5.4% F/E/N - LR @100 - monitor lytes - soft diet, will advance to solid in AM DVT ppx: SCDs, avoid chemical ppx ATTENDING PHYSICIAN STATEMENT I saw and evaluated the patient. I reviewed the resident's note and discussed the case with the resident. I agree with the resident's findings and plan as documented. SUBJECTIVE: OBJECTIVE: ASSESSMENT AND PLAN:
[2020-02-04] MEDS: LACTATED RINGERS SOLUTION 1,000 ML/1,000 ML INFUS.BAG IV SCH (21:14)
[2020-02-05] MEDS: CEFAZOLIN 1 GM in DEXTROSE 5%-WATER - 50 ML IVPB SCH ×3 (02:09→18:14)
[2020-02-05] MEDS ORDERED: ceFAZolin SODIUM 1 GM VIAL ONE ×3 (02:14→17:42)
[2020-02-05] MEDS ORDERED: DEXTROSE 5%-WATER - 50 ML IVPB ONE ×3 (02:14→17:42)
[2020-02-05 08:06] LABS: ALBUMIN 3.2 g/dl (3.4-5.0); BILIRUBIN,DIRECT 0.2 mg/dL (0.0-0.2); BILIRUBIN,TOTAL 0.4 mg/dL (0.2-1); BLOOD UREA NITROGEN 9.8 mg/dL (7-18); CALCIUM 8.8 mg/dL (8.5-10.1); CREATININE 0.6 mg/dL (0.55-1.3); POTASSIUM 3.8 mmol/L (3.5-5.1); TOT PROT 6.3 g/dl (6.4-8.2)
[2020-02-05] MEDS ORDERED: BISACODYL 10 MG SUPP.RECT RC ONE ×2 (11:19→23:30)
[2020-02-05] MEDS: DOCUSATE SODIUM 100 MG CAPSULE (FP) PO SCH ×3 (11:20→21:47)
[2020-02-05] MEDS: URSODIOL 300 MG CAPSULE PO SCH ×2 (11:29→21:47)
[2020-02-05] MEDS: POLYETHYLENE GLYCOL 3350 119 GM BTL PO SCH (11:30)
[2020-02-05] MEDS: SERTRALINE HCL 50 MG TABLET (FP) PO SCH (11:31)
[2020-02-05] MEDS ORDERED: ACETAMINOPHEN 325 MG TABLET (FP) PO PRN (11:41)
--- NOTE | 2020-02-05 11:41 | PN ---
Physical Exam: SUBJECTIVE: Patient seen and examined this AM. Complains this AM of throat pain and abdominal discomfort. Able to pass flatus, tolerate diet. OBJECTIVE: Vital Signs Period Temp Pulse Resp BP Sys/Faye Pulse Ox Last 24 Hr 97.7 F-98.3 F 69-84 18-20 127-133/72-78 100 GENERAL: A&Ox3, NAD HEAD: NCAT EYES: PERRL, EOMI ENT: MMM NECK: Supple LUNGS: CTAB, no wheezes, no crackles HEART: Regular rate and rhythm, S1, S2 without murmur ABDOMEN: Soft, Minimal tenderness to palpation in the epigastric and b/l upper quadrants, nondistended, + bowel sounds, no guarding EXTREMITIES: No edema. NEUROLOGICAL: Cranial nerves II through XII grossly intact. SKIN: Warm, dry, normal turgor, no rashes or lesions noted Laboratory Last Values WBC 7.9 K/mm3 (4.0-10.0) 02/04/20 06:20 RBC 4.13 M/mm3 (3.60-5.2) 02/04/20 06:20 Hgb 11.8 GM/dL (10.7-15.3) 02/04/20 06:20 Hct 35.4 % (32.4-45.2) 02/04/20 06:20 MCV 85.6 fl (80-96) 02/04/20 06:20 MCH 28.7 pg (25.7-33.7) 02/04/20 06:20 MCHC 33.5 g/dl (32.0-36.0) 02/04/20 06:20 RDW 14.9 % (11.6-15.6) 02/04/20 06:20 Plt Count 302 K/MM3 (134-434) 02/04/20 06:20 MPV 9.5 fl (7.5-11.1) 02/04/20 06:20 Absolute Neuts (auto) 5.5 K/mm3 (1.5-8.0) 02/04/20 06:20 Neutrophils % 70.3 % (42.8-82.8) 02/04/20 06:20 Lymphocytes % 20.8 % (8-40) D 02/04/20 06:20 Monocytes % 6.7 % (3.8-10.2) 02/04/20 06:20 Eosinophils % 1.8 % (0-4.5) 02/04/20 06:20 Basophils % 0.4 % (0-2.0) 02/04/20 06:20 Nucleated RBC % 0 % (0-0) 02/04/20 06:20 PT with INR 12.50 SEC (9.7-13.0) 02/03/20 06:15 INR 1.06 (0.83-1.09) 02/03/20 06:15 PTT (Actin FS) 31.8 SECONDS (25.2-36.5) 02/03/20 06:15 Sodium 138 mmol/L (136-145) 02/05/20 07:13 Potassium 3.8 mmol/L (3.5-5.1) 02/05/20 07:13 Chloride 105 mmol/L (98-107) 02/05/20 07:13 Carbon Dioxide 24 mmol/L (21-32) 02/05/20 07:13 Anion Gap 9 MMOL/L (8-16) 02/05/20 07:13 BUN 9.8 mg/dL (7-18) 02/05/20 07:13 Creatinine 0.6 mg/dL (0.55-1.3) 02/05/20 07:13 Est GFR (CKD-EPI)AfAm 124.05 02/05/20 07:13 Est GFR (CKD-EPI)NonAf 107.03 02/05/20 07:13 POC Glucometer 134 UNITS (80-120) 02/04/20 12:50 Random Glucose 105 mg/dL (74-106) 02/05/20 07:13 Hemoglobin A1c % 5.4 % (4.2-6.3) 02/03/20 06:15 Calcium 8.8 mg/dL (8.5-10.1) 02/05/20 07:13 Phosphorus 3.4 mg/dL (2.5-4.9) 02/04/20 06:20 Magnesium 1.9 mg/dL (1.8-2.4) 02/04/20 06:20 Total Bilirubin 0.4 mg/dL (0.2-1) 02/05/20 07:13 Direct Bilirubin 0.2 mg/dL (0.0-0.2) 02/05/20 07:13 AST 53 U/L (15-37) H 02/05/20 07:13 ALT 185 U/L (13-61) H 02/05/20 07:13 Alkaline Phosphatase 191 U/L (45-117) H 02/05/20 07:13 Creatine Kinase 49 U/L (26-192) 02/02/20 12:28 Troponin I < 0.02 ng/ml (0.00-0.05) 02/02/20 12:28 C-Reactive Protein 1.5 MG/DL (0.00-0.3) H 02/04/20 06:20 Total Protein 6.3 g/dl (6.4-8.2) L 02/05/20 07:13 Albumin 3.2 g/dl (3.4-5.0) L 02/05/20 07:13 Triglycerides 169 mg/dL (0-150) H 02/03/20 06:15 Cholesterol 206 mg/dL (50-200) H 02/03/20 06:15 Total LDL Cholesterol 139 mg/dL (5-100) H 02/03/20 06:15 HDL Cholesterol 37 mg/dL (40-60) L 02/03/20 06:15 Total Amylase 50 U/L (25-115) 02/04/20 06:20 Lipase 55 U/L (73-393) L 02/05/20 07:13 TSH 2.48 uIU/ml (0.358-3.74) 02/03/20 06:15 Serum , Qual Negative 02/02/20 10:40 Urine Color Yellow 02/02/20 10:40 Urine Appearance Clear 02/02/20 10:40 Urine pH 5.0 (5.0-8.0) 02/02/20 10:40 Ur Specific [place] 1.016 (1.010-1.035) 02/02/20 10:40 Urine Protein Negative (NEGATIVE) 02/02/20 10:40 Urine Glucose (UA) Negative (NEGATIVE) 02/02/20 10:40 Urine Ketones Negative (NEGATIVE) 02/02/20 10:40 Urine Blood Negative (NEGATIVE) 02/02/20 10:40 Urine Nitrite Negative (NEGATIVE) 02/02/20 10:40 Urine Bilirubin Negative (NEGATIVE) 02/02/20 10:40 Urine Urobilinogen 1.0 mg/dL (0.2-1.0) 02/02/20 10:40 Ur Leukocyte Esterase Negative (NEGATIVE) 02/02/20 10:40 Acetaminophen 14.4 02/02/20 20:00 Hep A IgM Ab Confirm Negative (Negative) 02/02/20 21:05 Hep Bs Antigen Negative (Negative) 02/02/20 21:05 Hep B Core IgM Ab Negative (Negative) 02/02/20 21:05 Hepatitis C Ab (EIA) <0.1 s/co ratio (0.0-0.9) 02/02/20 21:05 Blood Type O NEGATIVE 02/02/20 10:40 Antibody Screen Negative 02/02/20 10:40 Microbiology 02/02/20 10:40 Urine - Urine Clean Catch Urine Culture - Final NO GROWTH OBTAINED Active Medications Acetaminophen (Tylenol -) 650 mg PO Q6H PRN PRN Reason: PAIN LEVEL 1-5 Docusate Sodium (Colace -) 200 mg PO DAILY [facility] Last Admin: 02/05/20 11:20 Dose: 200 mg Documented by: Docusate Sodium (Colace -) 100 mg PO TID [facility] Metronidazole (Flagyl 500mg Premixed Ivpb -) 500 mg in 100 mls @ 100 mls/hr IVPB Q6H-IV PORTIA Last Admin: 02/05/20 08:30 Dose: 100 mls/hr Documented by: Cefazolin Sodium 1 gm/ (Dextrose) 50 mls @ 100 mls/hr IVPB Q8H-IV PORTIA Stop: 02/06/20 17:59 Last Admin: 02/05/20 09:30 Dose: 100 mls/hr Documented by: Lactated Ringer's (Lactated Ringers Solution) 1,000 ml in 1,000 mls @ 100 mls/hr IV ASDIR [facility] Last Admin: 02/04/20 21:14 Dose: 100 mls/hr Documented by: Lorazepam (Ativan -) 2 mg PO BID PRN PRN Reason: PAIN LEVEL 4 - 6 Last Admin: 02/03/20 21:04 Dose: 2 mg Documented by: Polyethylene Glycol (Miralax (For Daily Use) -) 17 gm PO DAILY [facility] Last Admin: 02/05/20 11:30 Dose: Not Given Documented by: Senna (Senna -) 1 tab PO BID [facility] Sertraline HCl (Zoloft -) 100 mg PO DAILY [facility] Last Admin: 02/05/20 11:31 Dose: 100 mg Documented by: Ursodiol (Actigal -) 300 mg PO BID [facility] Last Admin: 02/05/20 11:29 Dose: 300 mg Documented by: ASSESSMENT/PLAN: 49 y/o F PMHx PreDM, HLD who recently underwent cholecystectomy (10/[address] [facility], [place], Dr. Mas) BIBEMS for RUQ pain, admitted for choledocolithiasis, underwent ERCP (on 02/02) with double pigtail stent placement. #RUQ pain + transaminitis -s/p ERCP with stent placement; Lipase WNL, no signs for ERCP induced pancreatitis -KUB this AM reveals Retained stool, Focal ileus -Start Senna, Colace, Dulcolax suppository -DC Oxycodone; Start Tylenol, AVOID NSAIDS -Continue Cefazolin and Metronidazole (Abx course started on 02/01); to complete total 7 days of Abx -Continue Ursodiol -Hepatitis panel negative -LFTs improving; Trend -GI consulted, appreciate rec's -Low fat diet -Continue LR @ 100 #PreDM -A1c 5.4% -Counselled on lifestyle modification #HLD -Cholesterol panel noted -ASCVD risk 1.8%; Hold off on statin therapy for now -Counselled on lifestyle modification #FEN -LR @100 -Replete lytes PRN -Soft diet #PPx DVT: SCDs Dispo: Likely to DC in AM Visit type - Emergency Visit Emergency Visit: Yes ED Registration Date: 02/02/20 Care time: The patient presented to the Emergency Department on the above date and was hospitalized for further evaluation of their emergent condition. - New Patient This patient is new to me today: Yes Date on this admission: 02/06/20 - Critical Care Critical Care patient: No ATTENDING PHYSICIAN STATEMENT I saw and evaluated the patient. I reviewed the resident's note and discussed the case with the resident. I agree with the resident's findings and plan as documented. SUBJECTIVE: OBJECTIVE: ASSESSMENT AND PLAN:
--- NOTE | 2020-02-05 19:30 | PN ---
Teaching Attending Note Name of Resident: Myla Guzman ATTENDING PHYSICIAN STATEMENT I saw and evaluated the patient. I reviewed the resident's note and discussed the case with the resident. I agree with the resident's findings and plan as documented. SUBJECTIVE: seen this am . has minimal epigastric pain . has no N/V . tolerated diet . has discomfort in lower chest, and sore throat. no cough . deep inspiration makes discomfort worse ( not pain , but a feeling hard to explain) OBJECTIVE: NAD, awake, alert, oriented . oropharynx with erythema and some follicular appearance on R tonsil . MMM CV: RRR, no MRG Lungs: CTAB ABD: soft , ND, minimal TTP in epigastric area. no rebound tenderness, no guarding. nl BS. well healed laparoscopic wounds Ext : No edema or erythema on upper or lower extremities No tenderness in lower chest are ASSESSMENT AND PLAN: 49 y/o lady with h/o HLP, and recent [id number], w previous h/o prediabetes, who presented with abd pain and was found to have LFTS abnormalities due to CBD stone 1- Impacted CBD stone, s/p ERCP and stent 2- Transaminitis 3- Sore throat 4- H/o Pre-diabetes. Now A1c 5.4. 5- lower retrosternal discomfort Plan: - KUb and CXray obtained . - focal ileus adn stool impaction noted. - encourage ambulation , minimize narcotics, and give laxatives - no evidence of pancreatitis - obtain strep adn flu swabs possible dc tomorrow am
[2020-02-05] MEDS ORDERED: PT OWN MED DRAWER 7, Y5N ONE (21:34)
[2020-02-05] MEDS: SENNOSIDES 8.6MG TABLET (FP) PO SCH (21:47)
[2020-02-06] MEDS: SENNOSIDES 8.6MG TABLET (FP) PO SCH ×2 (00:12→10:24)
[2020-02-06] MEDS: LACTATED RINGERS SOLUTION 1,000 ML/1,000 ML INFUS.BAG IV SCH ×2 (00:13→10:22)
[2020-02-06] MEDS ORDERED: DEXTROSE 5%-WATER - 50 ML IVPB ONE ×2 (01:14→10:10)
[2020-02-06] MEDS ORDERED: ceFAZolin SODIUM 1 GM VIAL ONE ×2 (01:14→10:10)
[2020-02-06] MEDS: CEFAZOLIN 1 GM in DEXTROSE 5%-WATER - 50 ML IVPB SCH ×2 (01:19→11:43)
[2020-02-06] MEDS: DOCUSATE SODIUM 100 MG CAPSULE (FP) PO SCH ×3 (06:08→14:20)
[2020-02-06] MEDS: SERTRALINE HCL 50 MG TABLET (FP) PO SCH (10:23)
[2020-02-06] MEDS: URSODIOL 300 MG CAPSULE PO SCH (10:24)
[2020-02-06] MEDS: POLYETHYLENE GLYCOL 3350 119 GM BTL PO SCH (11:42)
--- NOTE | 2020-02-06 11:49 | PN.GI ---
GI Progress Note Subjective: No acute events Some left upper and right upper quadrant abdominal tenderness intermittently, otherwise doing well Had ERCP thursday: Impacted distal CBD stone. Could not be extracted at that time so stent was placed. LFTs improving from yesterday A stat tropoinin was ordered today - Objective Vital Signs: Vital Signs Temperature 98.6 F 02/06/20 06:00 Pulse Rate 75 02/06/20 06:00 Respiratory Rate 18 02/06/20 06:00 Blood Pressure 119/66 02/06/20 06:00 O2 Sat by Pulse Oximetry (%) 100 02/04/20 21:00 Constitutional: Calm Eyes: No: Sclera Icterus Cardiovascular: Yes: Regular Rate and Rhythm Respiratory: Yes: CTA Bilaterally Gastrointestinal Inspection: No: Distention ...Auscultate: Yes: Normoactive Bowel Sounds ...Palpate: Yes: Soft, Tenderness (Mild TTP LUQ and RUQ). No: Hepatomegaly, Splenomegaly ...Percussion: No: Tympanitic Edema: No (No LE edema) Neurological: Yes: Alert Labs: CBC, BMP 02/04/20 06:20 02/05/20 07:13 INR, PTT INR 1.06 (0.83-1.09) 02/03/20 06:15 Hepatic Panel Total Bilirubin 0.4 mg/dL (0.2-1) 02/05/20 07:13 Direct Bilirubin 0.2 mg/dL (0.0-0.2) 02/05/20 07:13 AST 53 U/L (15-37) H 02/05/20 07:13 ALT 185 U/L (13-61) H 02/05/20 07:13 Alkaline Phosphatase 191 U/L (45-117) H 02/05/20 07:13 Albumin 3.2 g/dl (3.4-5.0) L 02/05/20 07:13 Problem List - Problems (1) RUQ abdominal pain Assessment/Plan: Choledocholithiasis s/p stent placement Clinically improved No GI objection to D/C home if continued clinical improvement, improvement in LFTs If worsening abdominal pain repeat abdominal imaging with contrast CT scan of the abdomen and change to clears Code(s): R10.11 - RIGHT UPPER QUADRANT PAIN
--- NOTE | 2020-02-06 12:39 | PN ---
Teaching Attending Note Name of Resident: Alba Bose ATTENDING PHYSICIAN STATEMENT I saw and evaluated the patient. I reviewed the resident's note and discussed the case with the resident. I agree with the resident's findings and plan as documented. SUBJECTIVE: No fever or chills. No N/V. mild abd discomfort in epigastric area, adn when she takes deep breath, nut much improved compared to before. had few BMs last night after a suppository. No CP . sore throat resolved OBJECTIVE: NAD, awake, alert, oriented. oropharynx with decreased erythema . MMM CV: RRR, no MRG Lungs: CTAB ABD: softer compared to yesterday , ND, minimal TTP in epigastric area. no rebound tenderness, no guarding. nl BS. well healed laparoscopic wounds Ext : No edema or erythema on upper or lower extremities ASSESSMENT AND PLAN: 49 y/o lady with h/o HLP, and recent [id number], w previous h/o prediabetes, who presented with abd pain and was found to have LFTS abnormalities due to CBD stone 1- Impacted CBD stone, s/p ERCP and stent 2- Transaminitis 3- Sore throat 4- H/o Pre-diabetes. Now A1c 5.4. 5- ileus Plan: - Symptoms much improved. had BMS . - neg influenza and strep - LFTS pending - Encourage ambulation. - No clinical evidence of pancreatitis . No need for lipase today - obtain EKG. - if she cont to do well, and if LFTS are down trending. will dc home. - f/u with GI for stent removal, she was amde aware. - she was asked to establish care with PCP. She stated she is able to get one in a week. - blood work as out pt above is discussed with her. she is agreeable
[2020-02-06 13:16] LABS: ALBUMIN 3.5 g/dl (3.4-5.0); ALK PHOS 178 U/L (45-117); ANION GAP 7 MMOL/L (8-16); BILIRUBIN,TOTAL 0.4 mg/dL (0.2-1); BLOOD UREA NITROGEN 7.1 mg/dL (7-18); CALCIUM 8.9 mg/dL (8.5-10.1); CHLORIDE 107 mmol/L (98-107); CO2 25 mmol/L (21-32); CREATININE 0.5 mg/dL (0.55-1.3); GLUCOSE,RANDOM 80 mg/dL (74-106); POTASSIUM 4.3 mmol/L (3.5-5.1); SGOT/AST 64 U/L (15-37); SGPT/ALT 164 U/L (13-61); SODIUM 139 mmol/L (136-145); TOT PROT 7.1 g/dl (6.4-8.2)
--- NOTE | 2020-02-06 14:17 | EKG ---
Test Reason : Blood Pressure : / mmHG Vent. Rate : 071 BPM Atrial Rate : 071 BPM P-R Int : 122 ms QRS Dur : 082 ms QT Int : 410 ms P-R-T Axes : 047 041 019 degrees QTc Int : 445 ms NORMAL SINUS RHYTHM NORMAL ECG WHEN COMPARED WITH ECG OF 02-FEB-2020 10:59, NO SIGNIFICANT CHANGE WAS FOUND Confirmed by Nathaniel Verduzco ([id number]) on 02/06/2020 2:17:18 PM Referred By: Confirmed By:Nathaniel Verduzco
[2020-02-06 18:13] VITALS: BP 129/74; PULSE 74; TEMP 98.3
--- NOTE | 2020-02-06 18:57 | DS ---
Physical Exam: SUBJECTIVE: Patient seen and examined at bedside. pt states that she is getting RUQ pain sporadically, at the moment her pain is resolved OBJECTIVE: Vital Signs Period Temp Pulse Resp BP Sys/Faye Pulse Ox Last 24 Hr 98.3 F-98.6 F 74-75 18-18 119-129/66-74 PHYSICAL EXAM GENERAL: The patient is awake, alert, and fully oriented, in no acute distress. HEAD: Normal with no signs of trauma. NECK: Trachea midline, full range of motion, supple. LUNGS: Breath sounds equal, clear to auscultation bilaterally, no accessory muscle use. HEART: Regular rate and rhythm, S1, S2 without murmur, rub or gallop. ABDOMEN: Soft, nontender, nondistended, normoactive bowel sounds, no guarding, no masses. EXTREMITIES: 2+ pulses, warm, well-perfused, no edema. SKIN: Warm, dry, normal turgor, no rashes or lesions noted. LABS Laboratory Results - last 24 hr 02/05/20 02/05/20 02/06/20 19:51 19:51 11:43 Sodium Potassium Chloride Carbon Dioxide Anion Gap BUN Creatinine Est GFR (CKD-EPI)AfAm Est GFR (CKD-EPI)NonAf POC Glucometer 87 Random Glucose Calcium Total Bilirubin AST ALT Alkaline Phosphatase Troponin I Total Protein Albumin Influenza A (Rapid) Negative Influenza B (Rapid) Negative Group A Strep Rapid Negative 02/06/20 02/06/20 12:05 17:14 Sodium 139 Potassium 4.3 Chloride 107 Carbon Dioxide 25 Anion Gap 7 L BUN 7.1 Creatinine 0.5 L Est GFR (CKD-EPI)AfAm 131.72 Est GFR (CKD-EPI)NonAf 113.65 POC Glucometer 106 Random Glucose 80 Calcium 8.9 Total Bilirubin 0.4 AST 64 H ALT 164 H Alkaline Phosphatase 178 H Troponin I < 0.02 Total Protein 7.1 Albumin 3.5 Influenza A (Rapid) Influenza B (Rapid) Group A Strep Rapid HOSPITAL COURSE: Date of Admission:02/02/20 49 yo F PMH HLD, prior hx of pre-DM who recently underwent cholecystectomy (10/2019 at [facility], Dr. Mas) BIBEMS for RUQ pain, admitted for choledocolithiasis, underwent ERCP (on 02/02) with double pigtail stent placement. pt had ERCP with stent placement. pt was unable to have stone removed. pt was monitored for the following days for pancreatitis. pt was on cefazolin and flagyl discharged with ceftin to complete a 7 day course. pt started on ursodiol bid. pt should f/u with GI for stent removal within 6 months. during hospital course, pt was monitored for ileus. pt was given senna colace, suppository. pt had lipid panel which shows dyslipidemia but bc ASCVD risk is low it is not indicated to start statin. pt was counselled on lifestyle modifications. pt should f/u with pmd in 1 week for rpt cbc, cmp Date of Discharge: 02/06/20 Minutes to complete discharge: 37 Discharge Summary Problems reviewed: Yes Reason For Visit: RIGHT UPPER QUADRANT ABDOMINAL PAIN Current Active Problems Anxiety about health (Acute) Choledocholithiasis with obstruction (Acute) RUQ abdominal pain (Acute) Transaminitis (Acute) Depression (Chronic) Condition: Improved - Instructions Diet, Activity, Other Instructions: You came in for abdominal pain. We imaged your abdomen ( MRCP) and found that you had a stone. You had an endoscopy to place a stent to try to remove the stone ( stone was not removed ) . You were treated with antibiotics and IV fluids. Your blood work shows that you have high cholesterol. It is important for you to maintain a low fat diet and to incorporate exercise for a healthy lifestyle. Please take Ursodiol 300 mg twice a day. you need to take this for 3-4 months until stent is removed. we gave you 2 month supply and the rest need to be refilled by your PCP Please take ceftin 250 mg twice a day for 4 more days Please continue your home medications as prescribed. Please establish care with a primary care provider . you need to see them in 7- 10 days as you need blood work done ( CBC, CMP) Please follow up with your meteorologist liaison, Dr. Escamilla, as you will need a repeat endoscopy and stent removal in less than 3 months. take antibiotics for 4 more days avoid constipation . take senna or colace or both to achieve BM daily If you have any new, worsening, or concerning symptoms please return to the ED or call 911. Referrals: Raphael Escamilla MD [Staff Physician] - 1 Week Disposition: HOME - Home Medications Comprehensive Discharge Medication List: Ambulatory Orders Sertraline HCl [Zoloft] 100 mg PO DAILY 02/02/20 Cefuroxime Axetil [Cefuroxime] 250 mg PO Q12H #8 tablet 02/06/20 Ursodiol [Actigal -] 300 mg PO BID #120 capsule 02/06/20 This patient is new to me today: No Emergency Visit: No Critical Care patient: No - Discharge Referral Referred to [facility] No ATTENDING PHYSICIAN STATEMENT I saw and evaluated the patient. I reviewed the resident's note and discussed the case with the resident. I agree with the resident's findings and plan as documented. SUBJECTIVE: OBJECTIVE: ASSESSMENT AND PLAN:
== END 2020-02-06 18:52 | disposition home or self-care (01) | DRG 445 ==
LOC: JER 09:38 → JERBED 14:56 → J7W 16:44
PROVIDERS: ATTEND Internal Medicine
PROC: BF10YZZ Fluoroscopy of Bile Ducts using Other Contrast (ICD-10-PCS; 2020-02-03)
PROC: 0F798DZ Dilation of Common Bile Duct with Intraluminal Device, Via Natural or Artificial Opening Endoscopic (ICD-10-PCS; principal; 2020-02-03 10:00)
DX: K80.51 Calculus of bile duct without cholangitis or cholecystitis with obstruction (principal); K56.7 Ileus, unspecified; E78.5 Hyperlipidemia, unspecified; R74.0 Nonspecific elevation of levels of transaminase and lactic acid dehydrogenase [LDH]; K76.0 Fatty (change of) liver, not elsewhere classified; F41.8 Other specified anxiety disorders; J02.9 Acute pharyngitis, unspecified; R10.11 Right upper quadrant pain; E66.9 Obesity, unspecified; Z68.34 Body mass index [BMI] 34.0-34.9, adult; D72.829 Elevated white blood cell count, unspecified
CPT/HCPCS: 36415; 71045-TC-FY; 74018-TC-FY; 74177-TC; 74181-TC; 76000-TC-FY; 76705-TC; 80053; 80061; 80074; 80076; 80307; 81003; 82150; 82248; 82550; 82962; 83036; 83690; 83721; 83735; 84100; 84443; 84484; 84703; 85025; 85027; 85610; 85730; 86140; 86850; 86900; 86901; 87070; 87086; 87804; 87880; 93005; 93010; 97116-GP; 97161-GP; 99285-25; J0131; J1644; J7030; Q9967

== ENCOUNTER 2020-05-11 05:07 | Day surgery (SDC) | payer BC ==
[2020-05-09 10:56] VITALS: BMI 34.3
[2020-05-11 09:06] VITALS: TEMP 98.8
[2020-05-11] MEDS ORDERED: CEFAZOLIN 1 GM/D5W 1 GM/50 ML BAG ONE (09:19)
[2020-05-11] MEDS ORDERED: CEFAZOLIN 1 GM in DEXTROSE 5%-WATER - 50 ML IVPB ONE (10:15)
[2020-05-11 11:03] VITALS: BP 120/70; PULSE 72
== END 2020-05-11 11:13 | disposition home or self-care (01) ==
LOC: JASU-ENDO 05:07
PROVIDERS: ATTEND Internal Medicine Gastroenterology
PROC: 0FPB8DZ Removal of Intraluminal Device from Hepatobiliary Duct, Via Natural or Artificial Opening Endoscopic (ICD-10-PCS; 2020-05-11)
PROC: 0FC98ZZ Extirpation of Matter from Common Bile Duct, Via Natural or Artificial Opening Endoscopic (ICD-10-PCS; principal; 2020-05-11 08:00)
DX: K80.50 Calculus of bile duct without cholangitis or cholecystitis without obstruction (principal); Z96.89 Presence of other specified functional implants
CPT/HCPCS: 76000-TC-FY; 81025; 88300-TC

== ENCOUNTER 2025-05-03 06:38 | Day surgery (SDC) | payer BC ==
[2025-05-03 09:49] VITALS: TEMP 97.9
[2025-05-03 10:28] VITALS: BP 120/64; PULSE 65; RESP 16
== END 2025-05-03 10:35 | disposition home or self-care (01) ==
LOC: JASU-ENDO 06:38
PROVIDERS: ATTEND Internal Medicine Gastroenterology
PROC: 0DBP8ZX Excision of Rectum, Via Natural or Artificial Opening Endoscopic, Diagnostic (ICD-10-PCS; principal; 2025-05-03 09:00)
DX: Z12.11 Encounter for screening for malignant neoplasm of colon (principal); D12.8 Benign neoplasm of rectum
CPT/HCPCS: 88305-TC